=== PATIENT | female | born 1990 | race African-American/Black ===

== ENCOUNTER 2016-09-18 18:40 | Emergency (ER) | payer OTHER ==
[~2016-09-18] VITALS: Ht 154.9 cm; Wt 81.7 kg
[2016-09-18 18:40] VITALS: BP 120/74
[~2016-09-18 18:40] MED LIST: ACYCLOVIR 400400 MG PO; AMOXICILLIN200 M1 PO; AZITHROMYCIN 2250 MG PO; BACTRIM DS TAB1 EACH PO; COLACE 100 MG100 MG PO; DERMOPLAST SPRA56 ML; FLAGYL500 MG PO; HYDROCORTISONE30 G9 TOP; IBUPROFEN 800800 M1 PO; IRON325 PO; MACROBID 100 M100 M1 PO; NOHOMEMEDICATIONS; PRENATAL; TUCKS MEDICATE1 EAC1; ZANTAC 150MG T150 M1 PO; ZOFRAN4 MG PO
[2016-09-18 19:24] LABS: URINE BILIRUBIN NEGATIVE (Negative); URINE BLOOD NEGATIVE (Negative); URINE COLOR YELLOW; URINE GLUCOSE-RANDOM* NEGATIVE (Negative); URINE KETONES NEGATIVE (Negative); URINE NITRITE NEGATIVE (Negative); URINE PROTEIN (DIPSTICK) NEGATIVE (Negative); URINE SPECIFIC GRAVITY 1.025 (1.003-1.035); URINE UROBILINOGEN 0.2 E.U./dl (0.2-1.0)
[2016-09-18 19:32] LABS: BACTERIA 1-9 Few /HPF (None Seen); CASTS None Seen /LPF (None Seen); CRYSTALS None Seen /LPF (None Seen); SQUAMOUS 4-10 Moderate /LPF (0-3); URINE RBC 0-2 Rare /HPF (0-2); URINE WBC 0-5 Rare /HPF (0-5)
[2016-09-18 19:52] LABS: HEMOGLOBIN 10.8 gm/dL (12.0-15.0); MCHC 31.8 g/dL (28.0-37.0); MCV 75.5 fL (80.0-100.0); RBC 4.51 mil/uL (4.20-5.00); RDW 17.8 % (10.5-14.5); WBC 13.5 thou/uL (4.0-11.0)
[2016-09-18 20:01] LABS: CALCIUM 9.4 mg/dL (8.5-10.1); CREATININE 0.8 mg/dL (0.6-1.3); POTASSIUM 3.9 mmol/L (3.5-5.1)
[2016-09-18] MEDS ORDERED: VITAFOL-OB+DHA1 EACH PO (21:12)
[2016-09-19 14:11] LABS: CHLAMYDIA TRACHOMATIS-PCR Negative (Negative); NEISSERIA GONORRHEA-PCR Positive (Negative)
== END 2016-09-18 21:32 ==
LOC: ER 18:40
PROVIDERS: Physician Assistant
DX: O20.8 Other hemorrhage in early pregnancy (principal); Z3A.01 Less than 8 weeks gestation of pregnancy; Z88.6 Allergy status to analgesic agent

== ENCOUNTER 2016-12-01 18:01 | Emergency (ER) | payer OTHER ==
[~2016-12-01] VITALS: Ht 157.5 cm; Wt 93.9 kg
[~2016-12-01 18:01] MED LIST changes: +VITAFOL-OB+DHA1 EACH PO
[2016-12-01 18:17] VITALS: BP 127/77
[2016-12-01] MEDS ORDERED: DELTASONE20 MG PO (18:23)
== END 2016-12-01 19:21 | disposition home or self-care (01) ==
LOC: ER 18:01
DX: O26.899 Other specified pregnancy related conditions, unspecified trimester (principal); M54.5 Low back pain; Z3A.00 Weeks of gestation of pregnancy not specified; Z88.6 Allergy status to analgesic agent

== ENCOUNTER 2017-11-03 11:33 | Emergency (ER) | payer OTHER ==
[~2017-11-03] VITALS: Ht 157.5 cm; Wt 81.7 kg
--- NOTE | ~2017-11-03 | EKG ---
[address] [employer] [place] [address] ELECTROCARDIOGRAM REPORT Name: CARLYLE VÁZQUEZ Room #: DEP [facility]#: [id number] Admission: 11/03/17 Attend Phys: Discharge: 11/03/17 Date of : 89 Report #: [id number] THIS REPORT FOR: //name// [facility] ED Test Date: 2017-11-03 Test Time: 11:46:12 Pat Name: CARLYLE VÁZQUEZ Department: Room: Gender: [employer]: ADELA : 1990 Requested By: Eric Figueroa Order Number: [id number] MD: Mumtaz Saxena Measurements Intervals [place] Rate: 92 P: 41 CA: 187 QRS: 34 QRSD: 73 T: 1 QT: 335 QTc: 415 Interpretive Statements Sinus rhythm Nonspecific T abnormalities, anterior leads Compared to ECG 04/03/2011 06:12:37 T-wave abnormality now present Electronically Signed On 11-03-2017 15:54:26 CDT by Mumtaz Saxena [email or web address] <ELECTRONICALLY SIGNED> By: Mumtaz Saxena MD, [facility] 11/03/17 1554 [id number] Mumtaz Saxena MD, [facility] /EPI
[~2017-11-03 11:33] MED LIST changes: +DELTASONE20 MG PO
[2017-11-03 12:13] LABS: ABSOLUTE NEUTROPHILS 4.6 thou/uL (1.4-8.2); BASOPHILS 0.4 % (0.0-2.0); EOSINOPHILS 0.9 % (0.0-3.0); HEMATOCRIT 31.4 % (37.0-47.0); HEMOGLOBIN 10.3 gm/dL (12.0-15.0); LYMPHOCYTES 16.8 % (24.0-44.0); MCH 23.8 pg (26.0-34.0); MCHC 32.9 g/dL (28.0-37.0); MCV 72.4 fL (80.0-100.0); MONOCYTES 7.3 % (1.0-8.0); PLATELET COUNT 241 thou/uL (150-400); POLYS 74.6 % (36.0-66.0); RBC 4.33 mil/uL (4.20-5.00); RDW 17.5 % (10.5-14.5); WBC 6.1 thou/uL (4.0-11.0)
[2017-11-03 12:20] LABS: ANION GAP 7 mmol/L (7-16); BUN 6 mg/dL (7-18); CALCIUM 8.9 mg/dL (8.5-10.1); CHLORIDE 100 mmol/L (98-107); CO2 26 mmol/L (21-32); CREATININE 0.6 mg/dL (0.6-1.0); GLUCOSE 100 mg/dL (74-106); POTASSIUM 3.3 mmol/L (3.5-5.1); SODIUM 133 mmol/L (136-145)
[2017-11-03 12:29] LABS: TROPONIN-I < 0.04 ng/mL (<0.06)
[2017-11-03 13:29] LABS: ANISOCYTOSIS 1+; HYPOCHROMASIA 1+; MICROCYTES 1+
[2017-11-03 13:39] LABS: URINE BILIRUBIN NEGATIVE (Negative); URINE BLOOD NEGATIVE (Negative); URINE CLARITY CLEAR; URINE COLOR YELLOW; URINE GLUCOSE-RANDOM* NEGATIVE (Negative); URINE KETONES NEGATIVE (Negative); URINE NITRITE-REFLEX NEGATIVE (Negative); URINE PROTEIN (DIPSTICK) NEGATIVE (Negative); URINE SPECIFIC GRAVITY 1.015 (1.005-1.035); URINE UROBILINOGEN 0.2 E.U./dl (0.2-1.0)
[2017-11-03 13:40] LABS: URINE LEUKOCYTES-REFLEX 1+ (Negative)
[2017-11-03] MEDS ORDERED: REGLAN 10 MG TA10 MG PO (13:50)
[2017-11-03 14:03] VITALS: BP 104/65
[2017-11-03 14:05] LABS: SQUAMOUS 4-10 Moderate /LPF (0-3)
[2017-11-03 14:06] LABS: CASTS None Seen /LPF (None Seen); CRYSTALS None Seen /LPF (None Seen); URINE RBC None Seen /HPF (0-2); URINE WBC-REFLEX 6-15 Few /HPF (0-5)
== END 2017-11-03 14:38 | disposition home or self-care (01) ==
LOC: ER 11:33
PROVIDERS: Nurse Practitioner
DX: O26.891 Other specified pregnancy related conditions, first trimester (principal); O21.9 Vomiting of pregnancy, unspecified; M94.0 Chondrocostal junction syndrome [Tietze]; Z88.6 Allergy status to analgesic agent; Z3A.00 Weeks of gestation of pregnancy not specified